=== PATIENT | female | born 1970 | race Caucasian/White ===

== ENCOUNTER 2017-11-29 09:24 | Emergency (ER) | payer OTHER ==
[~2017-11-29] VITALS: Ht 175.3 cm; Wt 66.2 kg
[2017-11-29] MEDS ORDERED: ASPIR 8181 M1 PO (09:37)
[2017-11-29] MEDS ORDERED: FISH OIL 1,001000 M2 PO (09:38)
[2017-11-29 10:26] LABS: ABSOLUTE EOSINOPHILS 0.1 thou/uL (0.0-0.7); ABSOLUTE LYMPHOCYTES 1.1 thou/uL (0.8-5.3); ABSOLUTE MONOCYTES 0.4 thou/uL (0.0-1.2); ABSOLUTE NEUTROPHILS 5.2 thou/uL (1.6-8.1); BASOPHILS 0.5 %; EOSINOPHILS 1.7 %; HEMATOCRIT 42.6 % (37.0-47.0); HEMOGLOBIN 14.2 gm/dL (12.0-15.0); LYMPHOCYTES 16.3 %; MCH 31.5 pg (26.0-34.0); MCHC 33.3 g/dL (28.0-37.0); MCV 94.5 fL (80.0-100.0); MONOCYTES 5.2 %; MPV 9.6 fl. (7.2-11.1); NUCLEATED RBCS 0 /100WBC; PLATELET COUNT* 255 thou/uL (150-400); POLYS 76.3 %; RBC 4.51 mil/uL (4.20-5.00); WBC 6.8 thou/uL (4.0-11.0)
[2017-11-29 10:30] LABS: ANION GAP 6 mmol/L (7-16); BUN 9 mg/dL (7-18); CHLORIDE 105 mmol/L (98-107); CO2 28 mmol/L (21-32); CREATININE 0.9 mg/dL (0.6-1.3); GLUCOSE 85 mg/dL (70-99); SODIUM 139 mmol/L (136-145)
[2017-11-29 10:38] LABS: ALBUMIN 4.5 g/dL (3.4-5.0); ALKALINE PHOSPHATASE 49 U/L (46-116); SGOT 15 U/L (15-37); SGPT 25 U/L (30-65); TOTAL BILIRUBIN 0.3 mg/dL (<0.1-1.0); TROPONIN-I LEVEL <0.06 ng/mL (<0.06)
[2017-11-29 11:19] LABS: URINE BILIRUBIN NEGATIVE (Negative); URINE BLOOD NEGATIVE (Negative); URINE CLARITY CLEAR; URINE COLOR YELLOW; URINE GLUCOSE-RANDOM NEGATIVE (Negative); URINE KETONES NEGATIVE (Negative); URINE LEUKOCYTES-REFLEX TRACE (Negative); URINE NITRITE-REFLEX NEGATIVE (Negative); URINE PROTEIN NEGATIVE (Negative); URINE UROBILINOGEN 0.2 E.U./dl (0.2-1.0)
[2017-11-29 11:26] LABS: SQUAMOUS 4-10 Moderate /LPF (0-3); URINE RBC 0-2 Rare /HPF (0-2); URINE WBC-REFLEX 0-5 Rare /HPF (0-5)
[2017-11-29 11:27] LABS: BACTERIA-REFLEX 1-9 Few /HPF (None Seen); CASTS None Seen /LPF (None Seen); CRYSTALS None Seen /LPF (None Seen)
[2017-11-29 12:15] VITALS: BP 121/79
--- NOTE | 2017-11-29 14:02 | EKG ---
[place] [address] ELECTROCARDIOGRAM REPORT Name: CASEALEX Room: [facility]#: [id number] Admission: 11/29/17 Attend Phys: Discharge: 11/29/17 Date of : 68 Report #: [id number] THIS REPORT FOR: //name// [facility] ED Test Date: 2017-11-29 Test Time: 10:57:57 Pat Name: ALEX EVANS Department: Room: Gender: F Typewriter Tester: [place] : 1970 Requested By: Bri Chacon Order Number: [id number] MD: Fredo Baltazar Measurements Intervals [place] Rate: 69 P: 73 CT: 136 QRS: 76 QRSD: 97 T: 51 QT: 401 QTc: 430 Interpretive Statements Sinus rhythm Probable left atrial enlargement No previous ECG available for comparison Electronically Signed On 11-29-2017 14:02:06 CDT by Fredo Baltazar [email or web address] <ELECTRONICALLY SIGNED> By: Fredo Baltazar MD, [facility] 11/29/17 1402 1057 1057 Fredo Blatazar MD, FACC /EPI
== END 2017-11-29 12:20 | disposition home or self-care (01) ==
LOC: M.ERS 09:24
PROVIDERS: Personal Emergency Response Attendant
DX: R55 Syncope and collapse (principal); I10 Essential (primary) hypertension; Z88.0 Allergy status to penicillin